=== PATIENT | male | born 1945 | race Caucasian/White ===

== ENCOUNTER 2017-09-13 19:51 | Inpatient (IN) | payer MEDICAID, MEDICARE ==
[~2017-09-13] VITALS: Ht 152.4 cm; Wt 69.5 kg
[2017-09-13] MEDS ORDERED: ACETAMINOPHEN 325MG TABLET PO STA (20:33)
[2017-09-13 20:43] LABS: HEMATOCRIT. 40.1 % (42.0-52.0); HEMOGLOBIN. 13.3 g/dL (14.0-18.0); MEAN CORPUSCULAR HEMOGLOBIN 28.9 pg (28.0-32.0); MEAN CORPUSCULAR VOLUME 86.9 fL (80.0-94.0); MEAN PLATELET VOLUME 9.1 fl (7.4-10.4); PLATELET 168 x1000/uL (130-400); RED BLOOD CELL COUNT 4.61 mill/uL (4.7-6.1); RED CELL DISTRIBUTION WIDTH 14.5 % (11.6-14.6)
[2017-09-13] MEDS ORDERED: VANCOMYCIN 1 G PREMIX 200 ML IV ONE (20:45)
[2017-09-13] MEDS ORDERED: SODIUM CHLORIDE 0.9% 1000ML BAG (SEPSIS BOLUS) IV ONE (20:45)
[2017-09-13] MEDS ORDERED: LEVOFLOXACIN 750MG PREMIX 150 ML IV ONE (20:45)
[2017-09-13 20:46] LABS: CHLORIDE 103 mEq/L (98-107); PROTHROMBIN TIME 10.4 sec (9.4-11.6)
[2017-09-13] MEDS ORDERED: ONDANSETRON HCL 4MG/2ML VIAL IV ONE (21:00)
[2017-09-13 21:24] LABS: PLATELET ESTIMATE NORMAL
[2017-09-13] MEDS ORDERED: ACETAMINOPHEN 650MG SUPP PR ONE (21:30)
[2017-09-14] VITALS (80 sets, daily range): BP systolic 78–121; BP diastolic 31–73
[2017-09-14 00:24] LABS: CLARITY URINE CLOUDY (CLEAR); COLOR URINE YELLOW (YELLOW); KETONES URINE NEGATIVE (NEGATIVE); LEUKOCYTE ESTERASE URINE 3+ (NEGATIVE); NITRITE URINE POSITIVE (NEGATIVE); OCCULT BLOOD URINE 2+ (NEGATIVE); PH URINE 5.5 (4.5-8.0); PROTEIN URINE 2+ (NEGATIVE); SPECIFIC GRAVITY URINE 1.012 (1.005-1.030); UROBILINOGEN URINE 0.2 E.U./dL (0.2-1.0)
[2017-09-14] MEDS ORDERED: NOREPINEPHRINE 4 MG in DEXT 5% WATER 246 ML IV ONE ×2 (01:30→02:00)
[2017-09-14] MEDS ORDERED: DIPHENHYDRAMINE 50MG/ML VIAL IV PRN (01:45)
[2017-09-14] MEDS ORDERED: ACETAMINOPHEN 650MG SUPP PR PRN (01:45)
[2017-09-14] MEDS ORDERED: ONDANSETRON HCL 4MG/2ML VIAL IV PRN (01:45)
[2017-09-14] MEDS ORDERED: SODIUM CHLORIDE 0.9% 1,000 ML IV ONE (01:45)
[2017-09-14] MEDS ORDERED: NOREPINEPHRINE 4 MG in DEXT 5% WATER 246 ML IV SCH (02:00)
[2017-09-14] MEDS ORDERED: NOREPINEPHRINE 4 MG in DEXT 5% WATER 246 ML IV PRN (04:00)
[2017-09-14] MEDS ORDERED: CHOL100044 MT (04:20)
[2017-09-14] MEDS ORDERED: POLY17PO3 PO (04:20)
[2017-09-14] MEDS ORDERED: TAMS0.4C31 PO (04:20)
[2017-09-14] MEDS ORDERED: CALC-1042 PO (04:20)
[2017-09-14] MEDS ORDERED: PANT40TA4 PO (04:20)
[2017-09-14] MEDS ORDERED: ATOR20TA65 PO (04:20)
[2017-09-14] MEDS ORDERED: DANT100 PO (04:20)
[2017-09-14] MEDS ORDERED: L.AC1CAP6 PO (04:20)
[2017-09-14] MEDS ORDERED: ZOLE5INF IV (04:20)
[2017-09-14] MEDS ORDERED: D-MA50PO PO (04:20)
[2017-09-14] MEDS ORDERED: FISH MT (04:20)
[2017-09-14] MEDS ORDERED: LEVO75TA7 PO (04:20)
[2017-09-14] MEDS ORDERED: METH1TAB33 PO (04:20)
[2017-09-14] MEDS ORDERED: GENTAMICIN 120MG PREMIX 100 ML IV SCH (05:00)
[2017-09-14] MEDS: DEXT 5%/0.45% NACL 1000ML 1,000 ML IV SCH ×3 (08:33→22:38)
[2017-09-14] MEDS: NOREPINEPHRINE 4 MG in DEXT 5% WATER 246 ML IV PRN ×2 (08:34→17:05)
[2017-09-14] MEDS: FAMOTIDINE 20MG/2ML VIAL IV SCH ×2 (08:42→21:24)
[2017-09-14 09:56] LABS: HEMATOCRIT. 36.2 % (42.0-52.0); HEMOGLOBIN. 11.9 g/dL (14.0-18.0); MEAN CORPUSCULAR HEMOGLOBIN 28.8 pg (28.0-32.0); MEAN CORPUSCULAR VOLUME 87.2 fL (80.0-94.0); PLATELET 142 x1000/uL (130-400); RED BLOOD CELL COUNT 4.15 mill/uL (4.7-6.1); RED CELL DISTRIBUTION WIDTH 14.3 % (11.6-14.6)
[2017-09-14 10:25] LABS: CHLORIDE 107 mEq/L (98-107)
[2017-09-14 10:33] LABS: PLATELET ESTIMATE NORMAL
[2017-09-14] MEDS ORDERED: LEVOFLOXACIN 500MG PREMIX 100 ML IV SCH (21:00)
[2017-09-15] VITALS (58 sets, daily range): BP systolic 80–131; BP diastolic 42–89
[2017-09-15] MEDS: GENTAMICIN 120MG PREMIX 100 ML IV SCH ×2 (03:22→21:50)
[2017-09-15] MEDS: NOREPINEPHRINE 4 MG in DEXT 5% WATER 246 ML IV PRN (03:23)
[2017-09-15] MEDS: FAMOTIDINE 20MG/2ML VIAL IV SCH ×2 (08:59→21:50)
[2017-09-15] MEDS: DEXT 5%/0.45% NACL 1000ML 1,000 ML IV SCH ×2 (09:00→13:24)
[2017-09-15] MEDS ORDERED: DANTROLENE SODIUM 100 MG PO SCH (17:00)
[2017-09-15] MEDS: DANTROLENE SODIUM 25MG CAPSULE PO SCH (17:28)
[2017-09-15] MEDS ORDERED: LEVOFLOXACIN 500MG PREMIX 100 ML IV SCH (21:00)
[2017-09-16] VITALS (24 sets, daily range): BP systolic 85–116; BP diastolic 51–68
[2017-09-16] MEDS: DEXT 5%/0.45% NACL 1000ML 1,000 ML IV SCH ×4 (02:12→22:46)
[2017-09-16 04:47] LABS: HEMATOCRIT. 34.1 % (42.0-52.0); HEMOGLOBIN. 11.6 g/dL (14.0-18.0); MEAN CORPUSCULAR HEMOGLOBIN 29.2 pg (28.0-32.0); MEAN CORPUSCULAR VOLUME 85.9 fL (80.0-94.0); PLATELET 117 x1000/uL (130-400); RED BLOOD CELL COUNT 3.97 mill/uL (4.7-6.1); RED CELL DISTRIBUTION WIDTH 14.5 % (11.6-14.6)
[2017-09-16 05:39] LABS: CHLORIDE 112 mEq/L (98-107)
[2017-09-16 05:49] LABS: GENTAMICIN RANDOM 3.5 ug/mL
[2017-09-16] MEDS: DANTROLENE SODIUM 25MG CAPSULE PO SCH ×3 (09:04→16:59)
[2017-09-16] MEDS: FAMOTIDINE 20MG/2ML VIAL IV SCH (09:04)
[2017-09-16 11:54] LABS: PLATELET ESTIMATE SLIGHTLY DECREASED
[2017-09-16] MEDS ORDERED: GENTAMICIN SULFATE 140 MG in SODIUM CHLORIDE 0.9% 100 ML IV SCH (16:00)
[2017-09-16] MEDS: FAMOTIDINE 20MG TABLET PO SCH (22:45)
[2017-09-17] VITALS: BP 127/70
[2017-09-17] MEDS ORDERED: LEVOFLOXACIN 500MG PREMIX 100 ML IV SCH
[2017-09-17 04:00] VITALS: BP 99/62
[2017-09-17 07:48] LABS: HEMATOCRIT 37.8 % (42.0-52.0); HEMOGLOBIN 12.8 g/dL (14.0-18.0); MEAN CORPUSCULAR HEMOGLOBIN 29.2 pg (28.0-32.0); MEAN CORPUSCULAR VOLUME 86.1 fL (80.0-94.0); PLATELET 125 x1000/uL (130-400); RED BLOOD CELL COUNT 4.39 mill/uL (4.7-6.1); RED CELL DISTRIBUTION WIDTH 14.7 % (11.6-14.6)
[2017-09-17 08:44] LABS: CHLORIDE 112 mEq/L (98-107)
[2017-09-17] MEDS ORDERED: DANTROLENE SODIUM 100 MG PO SCH (09:00)
[2017-09-17] MEDS: FAMOTIDINE 20MG TABLET PO SCH (10:04)
[2017-09-17] MEDS: DEXT 5%/0.45% NACL 1000ML 1,000 ML IV SCH (12:05)
[2017-09-17] MEDS: DANTROLENE SODIUM 25MG CAPSULE PO SCH ×2 (14:49→17:39)
[2017-09-17 18:14] VITALS: BP 119/75
== END 2017-09-17 18:50 | disposition home or self-care (01) | DRG 871 ==
LOC: ER 19:51 → EDBEDREQTM 09-14 00:45 → EDBEDREQ 09-14 00:45 → CVICU 09-14 01:24 → ENRESERV 09-14 01:24 → CANRESERV 09-14 01:24 → EDBEDREQSVC 09-14 01:28 → EDBEDREQTM 09-14 01:28 → ENRESERV 09-14 01:32 → 6EST 09-16 15:56
PROVIDERS: ADMIT Internal Medicine; ATTEND Internal Medicine
PROC: 02H633Z Insertion of Infusion Device into Right Atrium, Percutaneous Approach (ICD-10-PCS; principal; 2017-09-13)
PROC: B244ZZZ Ultrasonography of Right Heart (ICD-10-PCS; 2017-09-13)
DX: A41.4 Sepsis due to anaerobes (principal); R65.21 Severe sepsis with septic shock; G93.41 Metabolic encephalopathy; C66.9 Malignant neoplasm of unspecified ureter; N40.0 Benign prostatic hyperplasia without lower urinary tract symptoms; K21.9 Gastro-esophageal reflux disease without esophagitis; E78.00 Pure hypercholesterolemia, unspecified; J45.909 Unspecified asthma, uncomplicated; M81.0 Age-related osteoporosis without current pathological fracture; D72.819 Decreased white blood cell count, unspecified; D64.9 Anemia, unspecified; Z85.51 Personal history of malignant neoplasm of bladder; Z88.8 Allergy status to other drugs, medicaments and biological substances; Z88.1 Allergy status to other antibiotic agents; Z79.899 Other long term (current) drug therapy
CPT/HCPCS: 36415; 51702; 71045; 80048; 80053; 80170; 81003; 83605; 84153; 84484; 85025; 85027; 85610; 87040; 87077; 87086; 87186; 92610; 93005; 96365; 96366; 96368; 96375; 97162; 99291; A6261; J1580; J1956; J2405; J3370; J3490; J7030; J7050; J7060; G0103